=== PATIENT | male | born 1940 | race Native Hawaiian/Other Pacific Islander ===

== ENCOUNTER 2017-09-17 01:59 | Observation (INO) | payer OTHER ==
[2017-09-17] VITALS (12 sets, daily range): BP systolic 122–163; BP diastolic 53–127; TEMP 98.1–99.2; Ht 170.2 cm; Wt 84.0 kg
[~2017-09-17] VITALS: Ht 170.2 cm; Wt 84.0 kg
[2017-09-17] MEDS ORDERED: METFTAB PO (02:23)
[2017-09-17] MEDS ORDERED: PRAVACHOL20 MG PO (02:24)
[2017-09-17] MEDS ORDERED: CEFUROXIME500 MG (02:24)
[2017-09-17] MEDS ORDERED: MICROZIDE12.5 MG OR (02:25)
[2017-09-17] MEDS ORDERED: GLIM4TAB PO (02:26)
[2017-09-17] MEDS ORDERED: RANITIDINE 150150 MG PO (02:27)
[2017-09-17] MEDS ORDERED: LEVO-T175 MCG PO (02:27)
[2017-09-17] MEDS ORDERED: 904272561 PO (02:28)
[2017-09-17] MEDS ORDERED: AMLODIPINE BESYLATE PO (02:30)
[2017-09-17] MEDS ORDERED: DICL75TA4 PO (02:30)
[2017-09-17] MEDS ORDERED: ADLT ASA LOW81 MG PO (02:31)
[2017-09-17] MEDS ORDERED: CIALIS5 MG PO (02:32)
[2017-09-17 02:41] LABS: PLATELET COUNT 216 K/uL (142-355)
[2017-09-17 02:48] LABS: POTASSIUM 4.7 mmol/L (3.6-5.2)
[2017-09-17 03:00] LABS: PARTIAL THROMBOPLASTIN TIME 37.8 SECONDS (24.5-33.6)
[2017-09-18] VITALS: BP 123/57; TEMP 99
[2017-09-18 04:00] VITALS: BP 109/64; TEMP 98.6
[2017-09-18 08:00] VITALS: BP 159/61; TEMP 98.8
[2017-09-18 11:49] VITALS: BP 147/72; TEMP 98.1
[2017-09-18 13:03] LABS: PLATELET COUNT 241 K/uL (142-355)
[2017-09-18 13:20] LABS: POTASSIUM 5.6 mmol/L (3.6-5.2)
[2017-09-18 16:00] VITALS: BP 143/68; TEMP 98
[2017-09-18 20:00] VITALS: BP 155/67; TEMP 98.4
[2017-09-19] VITALS: BP 133/59; TEMP 99
[2017-09-19 04:00] VITALS: BP 146/71; TEMP 98.8
[2017-09-19 08:00] VITALS: BP 150/66; TEMP 98
== END 2017-09-19 14:30 | disposition home or self-care (01) ==
LOC: ED 01:59 → MED/SURG 03:30
PROVIDERS: Internal Medicine
DX: R07.89 Other chest pain (principal); E11.9 Type 2 diabetes mellitus without complications; E03.8 Other specified hypothyroidism; I10 Essential (primary) hypertension; I50.9 Heart failure, unspecified; B34.9 Viral infection, unspecified; R97.20 Elevated prostate specific antigen [PSA]
CPT/HCPCS: 36415; 80053; 81000; 82550; 82553; 82948; 83880; 84153; 84484; 85027; 85610; 85730; 87804; 93005; 94760; 96365; 96372; 99220; 99284; G0378; J1650; J1815; J1940; J1956

== ENCOUNTER 2017-10-02 10:30 | Outpatient (CLI) | payer OTHER ==
[~2017-10-02 10:30] MED LIST: 904272561 PO; ADLT ASA LOW81 MG PO; AMLODIPINE BESYLATE PO; CEFUROXIME500 MG; CIALIS5 MG PO; DICL75TA4 PO; GLIM4TAB PO; LEVO-T175 MCG PO; METFTAB PO; MICROZIDE12.5 MG OR; PRAVACHOL20 MG PO; RANITIDINE 150150 MG PO
== END 2017-10-02 22:25 | disposition home or self-care (01) ==
LOC: RESP 10:30
DX: R06.02 Shortness of breath (principal)

== ENCOUNTER 2018-04-03 10:02 | Outpatient (CLI) | payer OTHER | END 2018-04-03 20:33 | disposition home or self-care (01) | LOC: RESP 10:02 | DX: I49.9 Cardiac arrhythmia, unspecified (principal) | CPT/HCPCS: 93005 ==

== ENCOUNTER 2018-08-22 09:22 | Outpatient (CLI) | payer OTHER | END 2018-08-22 19:38 | disposition home or self-care (01) | LOC: US 09:22 → LABW 09:22 → US 09:30 → LABW 19:38 | DX: N28.9 Disorder of kidney and ureter, unspecified (principal); N28.1 Cyst of kidney, acquired ==

== ENCOUNTER 2018-12-04 08:46 | Outpatient (CLI) | payer OTHER ==
[2018-12-04 09:31] LABS: POTASSIUM 4.6 mmol/L (3.6-5.2)
== END 2018-12-04 23:44 | disposition home or self-care (01) ==
LOC: LABW 08:46
PROVIDERS: Nurse Practitioner
DX: E11.40 Type 2 diabetes mellitus with diabetic neuropathy, unspecified (principal); R79.89 Other specified abnormal findings of blood chemistry; N28.89 Other specified disorders of kidney and ureter
CPT/HCPCS: 36415; 80048; 82043; 82570; 83036; 84402; 84403

== ENCOUNTER 2019-05-13 18:39 | Outpatient (CLI) | payer OTHER ==
[2019-05-13 19:48] LABS: POTASSIUM 4.4 mmol/L (3.6-5.2)
[2019-05-13 19:49] LABS: PLATELET COUNT 186 K/uL (142-355)
== END 2019-05-13 22:05 | disposition home or self-care (01) ==
LOC: LAB 18:39
PROVIDERS: Nurse Practitioner Family
DX: E03.9 Hypothyroidism, unspecified (principal); E11.9 Type 2 diabetes mellitus without complications; Z79.4 Long term (current) use of insulin; N52.9 Male erectile dysfunction, unspecified; M54.9 Dorsalgia, unspecified; N40.0 Benign prostatic hyperplasia without lower urinary tract symptoms; E29.1 Testicular hypofunction
CPT/HCPCS: 80053; 80061; 83036; 84153; 84402; 84403; 84439; 84443; 85027

== ENCOUNTER 2020-01-11 11:09 | Outpatient (CLI) | payer OTHER ==
[2020-01-11 11:51] LABS: PLATELET COUNT 178 K/uL (142-355)
[2020-01-11 12:07] LABS: POTASSIUM 4.9 mmol/L (3.6-5.2)
== END 2020-01-11 19:21 | disposition home or self-care (01) ==
LOC: LAB 11:09
PROVIDERS: Nurse Practitioner Family
DX: Z00.00 Encounter for general adult medical examination without abnormal findings (principal); I10 Essential (primary) hypertension; E11.9 Type 2 diabetes mellitus without complications; E03.8 Other specified hypothyroidism; N40.0 Benign prostatic hyperplasia without lower urinary tract symptoms; N52.8 Other male erectile dysfunction; Z79.4 Long term (current) use of insulin; E29.1 Testicular hypofunction; Z79.899 Other long term (current) drug therapy
CPT/HCPCS: 80053; 80061; 83036; 84153; 84439; 84443; 84481; 85027

== ENCOUNTER 2020-06-20 10:05 | Outpatient (CLI) | payer OTHER | END 2020-06-20 19:35 | disposition home or self-care (01) | LOC: LAB 10:05 | PROVIDERS: ATTEND Nurse Practitioner Family | DX: U07.1 COVID-19 (principal); R05 Cough; H04.203 Unspecified epiphora, bilateral | CPT/HCPCS: 87635; G2023; U0003 ==

== ENCOUNTER 2020-09-20 07:58 | Outpatient (CLI) | payer OTHER | END 2020-09-20 21:40 | disposition home or self-care (01) | LOC: LABW 07:58 → CT 07:58 → LABW 21:40 | PROVIDERS: ATTEND Specialist | DX: C61 Malignant neoplasm of prostate (principal) | CPT/HCPCS: 36415; 82565; 84520 ==

== ENCOUNTER 2021-06-15 16:00 | Observation (INO) | payer OTHER ==
[~2021-06-15] VITALS: Ht 170.2 cm; Wt 86.7 kg
[2021-06-15 16:14] VITALS: BP 124/48; TEMP 98.1
[2021-06-15 16:31] LABS: PLATELET COUNT 136 K/uL (142-355)
[2021-06-15 16:39] LABS: POTASSIUM 5.9 mmol/L (3.6-5.2)
[2021-06-15 17:15] VITALS: BP 128/53
[2021-06-15 18:30] VITALS: BP 130/61
[2021-06-15 20:00] VITALS: BP 145/60; TEMP 98.2
[2021-06-15 22:56] VITALS: BP 145/60; TEMP 98.2; Ht 170.2 cm; Wt 86.7 kg
[2021-06-16 00:13] VITALS: BP 13/61; BP 138/61; TEMP 97.9
[2021-06-16 04:17] VITALS: BP 122/43; TEMP 97.3
[2021-06-16 05:27] LABS: POTASSIUM 4.9 mmol/L (3.6-5.2)
[2021-06-16 08:00] VITALS: BP 151/60; TEMP 97.6
[2021-06-16 12:00] VITALS: BP 147/55; TEMP 98.7
== END 2021-06-16 14:45 | disposition home or self-care (01) ==
LOC: ED 16:00 → MED/SURG 17:50
PROVIDERS: Emergency Medicine; ADMIT Internal Medicine Endocrinology, Diabetes & Metabolism; ATTEND Internal Medicine Endocrinology, Diabetes & Metabolism
DX: N17.9 Acute kidney failure, unspecified (principal); E87.5 Hyperkalemia; E11.9 Type 2 diabetes mellitus without complications; Z86.16 Personal history of COVID-19; I25.10 Atherosclerotic heart disease of native coronary artery without angina pectoris; Z85.46 Personal history of malignant neoplasm of prostate; D64.89 Other specified anemias; E87.1 Hypo-osmolality and hyponatremia; E86.0 Dehydration; K59.00 Constipation, unspecified
CPT/HCPCS: 36415; 80048; 84484; 85027; 87635; 93005; 96360; 96361; 96375; 99220; 99284; G0378; U0003

== ENCOUNTER 2021-11-23 12:03 | Outpatient (CLI) | payer OTHER | END 2021-11-23 19:24 | disposition home or self-care (01) | LOC: RAD 12:03 | PROVIDERS: ATTEND Nurse Practitioner Family | DX: R06.02 Shortness of breath (principal) ==

== ENCOUNTER 2021-12-28 11:16 | Outpatient (CLI) | payer OTHER | END 2021-12-28 20:37 | disposition home or self-care (01) | LOC: RAD 11:16 | PROVIDERS: ATTEND Internal Medicine Sleep Medicine | DX: R06.09 Other forms of dyspnea (principal) ==

== ENCOUNTER 2022-02-27 09:00 | Outpatient (CLI) | payer OTHER ==
[~2022-02-27] VITALS: Ht 200.7 cm; Wt 92.1 kg
[~2022-02-27 09:00] MED LIST changes: +FUROSEMIDE80 MG PO; +LANTUS SOL100 UNIT/M SC; +LEVO-T125 MCG PO; -LEVO-T175 MCG PO; +LORATADINE10 MG PO; +LOSA50TA PO; +PANTOPRAZOLE SO40 M1 PO; +POTASSIUM CHLO20 ME2 PO; +TAMSULOSIN HYD0.4 MG PO
== END 2022-02-27 18:59 | disposition home or self-care (01) ==
LOC: NM 09:00
PROVIDERS: ATTEND Nurse Practitioner Adult Health
DX: R42 Dizziness and giddiness (principal); I10 Essential (primary) hypertension; R00.1 Bradycardia, unspecified; R06.09 Other forms of dyspnea
CPT/HCPCS: A9500; J2785

== ENCOUNTER 2022-06-18 09:46 | Emergency (ER) | payer OTHER ==
[~2022-06-18] VITALS: Ht 170.2 cm; Wt 86.2 kg
[2022-06-18 09:49] VITALS: TEMP 98.1
[2022-06-18 10:42] LABS: PLATELET COUNT 170 K/uL (142-355)
[2022-06-18 12:00] VITALS: BP 125/69
== END 2022-06-18 12:00 | disposition home or self-care (01) ==
LOC: ED 09:46
PROVIDERS: Emergency Medicine Emergency Medical Services
DX: R51.9 Headache, unspecified (principal)
CPT/HCPCS: 80048; 83735; 85027; 99283

== ENCOUNTER 2022-12-20 11:00 | Observation (INO) | payer OTHER ==
[2022-12-20] VITALS (14 sets, daily range): BP systolic 95–144; BP diastolic 44–79; TEMP 98.1–98.3; Ht 170.2 cm; Wt 93.0 kg
[~2022-12-20] VITALS: Ht 170.2 cm; Wt 93.0 kg
[~2022-12-20 11:00] MED LIST changes: -PRAVACHOL20 MG PO; +PRAVASTATIN10 MG PO
[2022-12-20 11:19] LABS: PLATELET COUNT 219 K/uL (142-355)
[2022-12-20 11:26] LABS: POTASSIUM 4.5 mmol/L (3.6-5.2)
[2022-12-20] MEDS ORDERED: ALPR0.5T24 PO ×2 (19:21→19:22)
[2022-12-20] MEDS ORDERED: EUTHYROX88 MCG PO (19:27)
[2022-12-20] MEDS ORDERED: TYLENOL325 MG PO (19:29)
[2022-12-21] VITALS (7 sets, daily range): BP systolic 105–150; BP diastolic 44–79; TEMP 97–98.7
[2022-12-21] MEDS ORDERED: MECLIZINE25 MG PO (14:22)
== END 2022-12-21 16:08 | disposition home or self-care (01) ==
LOC: ED 11:00 → MED/SURG 14:00
PROVIDERS: Family Medicine; ADMIT Nurse Practitioner Family; ATTEND Internal Medicine
DX: R42 Dizziness and giddiness (principal); I95.1 Orthostatic hypotension
CPT/HCPCS: 80053; 83880; 84484; 85027; 93005; 96372; 99221; 99284; G0378; J1815

== ENCOUNTER 2023-03-08 07:39 | Outpatient (CLI) | payer OTHER ==
[~2023-03-08 07:39] MED LIST changes: +ALPR0.5T24 PO; +EUTHYROX88 MCG PO; +MECLIZINE25 MG PO; +TYLENOL325 MG PO
[2023-03-08 08:02] LABS: PLATELET COUNT 160 K/uL (142-355)
[2023-03-08 08:19] LABS: POTASSIUM 3.9 mmol/L (3.6-5.2)
== END 2023-03-08 19:07 | disposition home or self-care (01) ==
LOC: LABW 07:39
PROVIDERS: ATTEND Internal Medicine Cardiovascular Disease
DX: Z79.899 Other long term (current) drug therapy (principal); B99.9 Unspecified infectious disease; E11.59 Type 2 diabetes mellitus with other circulatory complications
CPT/HCPCS: 36415; 80053; 80061; 81002; 83036; 85027